=== PATIENT | female | born 1935 | race Caucasian/White ===

== ENCOUNTER 2017-02-10 12:16 | Emergency (ER) | payer MEDICARE, MEDICAID ==
[~2017-02-10 12:16] MED LIST: LISI2.5T PO
[2017-02-10 12:19] VITALS: BP 123/85
== END 2017-02-10 13:10 | disposition home or self-care (01) ==
LOC: ED 12:36
DX: M19.021 Primary osteoarthritis, right elbow (principal); Z76.0 Encounter for issue of repeat prescription; G89.29 Other chronic pain; M25.531 Pain in right wrist; I10 Essential (primary) hypertension; F10.129 Alcohol abuse with intoxication, unspecified
CPT/HCPCS: 99283

== ENCOUNTER 2017-02-19 11:27 | Emergency (ER) | payer MEDICARE, MEDICAID ==
[~2017-02-19] VITALS: Ht 167.6 cm; Wt 75.3 kg
[2017-02-19 11:29] VITALS: BP 138/85
[2017-02-19] MEDS ORDERED: KETOROLAC 30 MG/1 ML IM ONE (13:00)
[2017-02-19] MEDS ORDERED: KETOROLAC 30 MG/1 ML ONE (13:01)
== END 2017-02-19 13:07 | disposition home or self-care (01) ==
LOC: ED 11:44
DX: G89.11 Acute pain due to trauma (principal); M25.521 Pain in right elbow; M79.631 Pain in right forearm; I10 Essential (primary) hypertension; I48.91 Unspecified atrial fibrillation; X58.XXXA Exposure to other specified factors, initial encounter; Y93.89 Activity, other specified; Y92.89 Other specified places as the place of occurrence of the external cause; Y99.9 Unspecified external cause status
CPT/HCPCS: 73080; 73090; 96372; 99284; J1885

== ENCOUNTER 2017-02-22 07:25 | Emergency (ER) | payer MEDICARE, MEDICAID ==
[~2017-02-22] VITALS: Ht 167.6 cm; Wt 75.0 kg
[2017-02-22 07:27] VITALS: BP 106/75
[2017-02-22] MEDS ORDERED: FLUORESCEIN OPHTHALMIC 1 MG STRIP ONE (07:52)
[2017-02-22] MEDS ORDERED: PROPARACAINE OPHTH 0.5%, 15ML ONE (07:52)
[2017-02-22] MEDS ORDERED: PROPARACAINE OPHTH 0.5%, 15ML EACHEYE ONE (08:00)
[2017-02-22] MEDS ORDERED: FLUORESCEIN OPHTHALMIC 1 MG STRIP EACHEYE ONE (08:00)
== END 2017-02-22 08:23 | disposition home or self-care (01) ==
LOC: ED 08:00
DX: S05.02XA Injury of conjunctiva and corneal abrasion without foreign body, left eye, initial encounter (principal); I10 Essential (primary) hypertension; X58.XXXA Exposure to other specified factors, initial encounter; Y93.89 Activity, other specified; Y92.89 Other specified places as the place of occurrence of the external cause; Y99.9 Unspecified external cause status
CPT/HCPCS: 99283

== ENCOUNTER 2017-02-27 10:29 | Emergency (ER) | payer MEDICARE, MEDICAID ==
[~2017-02-27] VITALS: Ht 167.6 cm; Wt 76.0 kg
[2017-02-27 10:34] VITALS: BP 128/80
== END 2017-02-27 11:07 | disposition home or self-care (01) ==
LOC: ED 10:59
DX: S66.911A Strain of unspecified muscle, fascia and tendon at wrist and hand level, right hand, initial encounter (principal); I10 Essential (primary) hypertension; M10.9 Gout, unspecified; X58.XXXA Exposure to other specified factors, initial encounter; Y93.89 Activity, other specified; Y92.89 Other specified places as the place of occurrence of the external cause; Y99.8 Other external cause status
CPT/HCPCS: 99283

== ENCOUNTER 2017-03-06 06:49 | Emergency (ER) | payer MEDICARE, MEDICAID ==
[~2017-03-06] VITALS: Ht 167.6 cm; Wt 79.2 kg
[2017-03-06 06:50] VITALS: BP 164/107
[2017-03-06] MEDS ORDERED: LISI2.5T PO (07:18)
[2017-03-06] MEDS ORDERED: OXYcodone/APAP 5/325MG TABLET ONE (07:59)
[2017-03-06] MEDS ORDERED: OXYcodone/APAP 5/325MG TABLET PO ONE (08:00)
== END 2017-03-06 08:40 | disposition home or self-care (01) ==
LOC: ED 07:22
DX: G89.11 Acute pain due to trauma (principal); M79.631 Pain in right forearm; I10 Essential (primary) hypertension; I48.91 Unspecified atrial fibrillation; W19.XXXA Unspecified fall, initial encounter; Y93.89 Activity, other specified; Y92.89 Other specified places as the place of occurrence of the external cause; Y99.8 Other external cause status
CPT/HCPCS: 99283

== ENCOUNTER 2017-03-17 06:49 | Emergency (ER) | payer MEDICARE, MEDICAID ==
[~2017-03-17] VITALS: Ht 167.6 cm; Wt 76.0 kg
[2017-03-17 06:50] VITALS: BP 119/84
[2017-03-17] MEDS ORDERED: HYDROcodone/APAP 5/325 TABLET PO ONE (07:30)
[2017-03-17] MEDS ORDERED: KETOROLAC 30 MG/1 ML IM ONE (07:30)
[2017-03-17] MEDS ORDERED: HYDROcodone/APAP 5/325 TABLET ONE (07:34)
[2017-03-17] MEDS ORDERED: KETOROLAC 30 MG/1 ML ONE (07:35)
== END 2017-03-17 08:03 | disposition home or self-care (01) ==
LOC: ED 07:54
DX: G89.29 Other chronic pain (principal); I10 Essential (primary) hypertension; M25.531 Pain in right wrist; I48.91 Unspecified atrial fibrillation
CPT/HCPCS: 29125; 96372; 99283; J1885

== ENCOUNTER 2017-04-15 07:25 | Emergency (ER) | payer MEDICARE, MEDICAID ==
[~2017-04-15] VITALS: Ht 167.6 cm; Wt 77.1 kg
[2017-04-15] MEDS ORDERED: HYDROcodone/APAP 5/325 TABLET PO ONE (08:00)
[2017-04-15] MEDS ORDERED: HYDROcodone/APAP 5/325 TABLET ONE (08:05)
[2017-04-15 08:12] VITALS: BP 142/93
[2017-04-15] MEDS ORDERED: METOPROLOL TARTRATE 50 MG TABLET ONE (08:43)
[2017-04-15] MEDS ORDERED: METOPROLOL TARTRATE 50 MG TABLET PO ONE (09:00)
== END 2017-04-15 08:50 | disposition home or self-care (01) ==
LOC: ED 07:48
DX: M25.531 Pain in right wrist (principal); I10 Essential (primary) hypertension
CPT/HCPCS: 99283

== ENCOUNTER 2017-05-31 23:43 | Emergency (ER) | payer MEDICAID, MEDICARE ==
[~2017-05-31] VITALS: Ht 167.6 cm; Wt 75.0 kg
[2017-06-01] MEDS ORDERED: ASPI-621 PO (00:05)
[2017-06-01] MEDS ORDERED: HYDROcodone/APAP 5/325 TABLET ONE (00:45)
[2017-06-01] MEDS ORDERED: HYDROcodone/APAP 5/325 TABLET PO ONE (01:00)
[2017-06-01 01:14] VITALS: BP 146/76
== END 2017-06-01 01:16 | disposition home or self-care (01) ==
LOC: ED 23:46
DX: G89.18 Other acute postprocedural pain (principal); M25.531 Pain in right wrist; I10 Essential (primary) hypertension; M10.9 Gout, unspecified; F10.129 Alcohol abuse with intoxication, unspecified
CPT/HCPCS: 99283

== ENCOUNTER 2017-08-26 14:10 | Inpatient (IN) | payer MEDICARE, MEDICAID ==
[~2017-08-26] VITALS: Ht 167.6 cm; Wt 85.2 kg
[~2017-08-26 14:10] MED LIST changes: +ASPI-621 PO
[2017-08-26] MEDS ORDERED: IBUPROFEN 200 MG TABLET PO ONE (15:00)
[2017-08-26] MEDS ORDERED: IBUPROFEN 200 MG TABLET ONE (15:02)
[2017-08-26] MEDS ORDERED: METO25TA35 PO (15:07)
[2017-08-26] MEDS ORDERED: GABA300C10 PO (15:07)
[2017-08-26 15:11] LABS: MICROSCOPIC INDICATED
[2017-08-26 15:13] LABS: CULTURE INDICATED? YES
[2017-08-26] MEDS ORDERED: CEFTRIAXONE PMX 1GM/50ML 50 ML IVPB ONE (15:30)
[2017-08-26] MEDS ORDERED: CEFTRIAXONE PMX 1GM/50ML 50 ML ONE (15:46)
[2017-08-26] MEDS ORDERED: ONDANSETRON ODT 4 MG PO PRN (16:30)
[2017-08-26] MEDS ORDERED: LABETALOL 5MG/ML, 20ML IVPush PRN (16:30)
[2017-08-26] MEDS ORDERED: POLYETHYLENE GLYCOL 17 GM PACKET PO PRN (16:30)
[2017-08-26] MEDS ORDERED: ONDANSETRON 2MG/ML, 2ML IVPush PRN (16:30)
[2017-08-26 16:41] LABS: INTERNATIONAL NORMALIZED RATIO 0.97 (0.93-1.1); PROTHROMBIN TIME 10.1 Seconds (9.6-11.5)
[2017-08-26] MEDS: ENOXAPARIN 40 MG/0.4 ML SQ SCH (18:01)
[2017-08-26] MEDS: morphine SULFATE 10 MG/ML, 1ML IVPush PRN ×2 (18:01→21:08)
[2017-08-26] MEDS: SODIUM CHLORIDE 0.9% 1,000 ML IV SCH (18:01)
[2017-08-26 18:37] LABS: BASOPHILS # (AUTO) 0.03 x10^3/uL (0-0.1); BASOPHILS % (AUTO) 0 % (0-1); EOSINOPHILS # (AUTO) 0.11 x10^3/uL (0-0.4); EOSINOPHILS % (AUTO) 1 % (1-7); LYMPHOCYTES # (AUTO) 1.22 x10^3/uL (1-3.4); LYMPHOCYTES % (AUTO) 15 % (22-44); MD NO; MEAN CORPUSCULAR HEMOGLOBIN 28.2 pg (27.0-34.8); MEAN CORPUSCULAR HGB CONC 32.9 g/dL (32.4-35.8); MEAN CORPUSCULAR VOLUME 85.6 fL (80-100); MONOCYTES # (AUTO) 0.36 x10^3/uL (0.2-0.8); MONOCYTES % (AUTO) 5 % (2-9); NEUTROPHILS % (AUTO) 79 % (42-75); PLATELET COUNT 248 x10^3/uL (130-400); RED BLOOD COUNT 4.94 x10^6/uL (3.82-5.3); RED CELL DISTRIBUTION WIDTH 14.4 % (9.6-15.2)
[2017-08-26 18:42] LABS: ALANINE AMINOTRANSFERASE 15 U/L (12-78); ALBUMIN 3.6 g/dL (3.4-5.0); ANION GAP 5 mmol/L (5-15); CHLORIDE 109 mmol/L (98-107); CREATININE 0.74 mg/dL (0.55-1.02)
[2017-08-26 18:45] LABS: ALKALINE PHOSPHATASE 97 U/L (45-117); BILIRUBIN,TOTAL 0.6 mg/dL (0.2-1.0); TOTAL PROTEIN 7.3 g/dL (6.4-8.2)
[2017-08-26 19:16] VITALS: BP_SYST 103; BP_SYST 146; BP_DIAS 56; BP_DIAS 93
[2017-08-26] MEDS ORDERED: OMNIPAQUE 350 MG/ML, 100ML BOTTLE ONE (19:46)
[2017-08-27 00:54] VITALS: BP 137/75
[2017-08-27] MEDS: morphine SULFATE 10 MG/ML, 1ML IVPush PRN ×3 (02:21→09:14)
[2017-08-27] MEDS: SODIUM CHLORIDE 0.9% 1,000 ML IV SCH ×3 (04:24→23:48)
[2017-08-27 06:35] VITALS: BP 127/86
[2017-08-27 08:33] LABS: BASOPHILS # (AUTO) 0.03 x10^3/uL (0-0.1); BASOPHILS % (AUTO) 0 % (0-1); EOSINOPHILS # (AUTO) 0.08 x10^3/uL (0-0.4); EOSINOPHILS % (AUTO) 1 % (1-7); LYMPHOCYTES # (AUTO) 1.15 x10^3/uL (1-3.4); LYMPHOCYTES % (AUTO) 17 % (22-44); MD NO; MEAN CORPUSCULAR HGB CONC 32.9 g/dL (32.4-35.8); MEAN CORPUSCULAR VOLUME 85.1 fL (80-100); MEAN PLATELET VOLUME 9.1 fL (7.4-10.4); MONOCYTES # (AUTO) 0.43 x10^3/uL (0.2-0.8); MONOCYTES % (AUTO) 7 % (2-9); NEUTROPHILS # (AUTO) 4.91 x10^3/uL (1.8-6.8); NEUTROPHILS % (AUTO) 74 % (42-75); PLATELET COUNT 223 x10^3/uL (130-400); RED BLOOD COUNT 4.55 x10^6/uL (3.82-5.3); RED CELL DISTRIBUTION WIDTH 14.5 % (9.6-15.2)
[2017-08-27 08:36] LABS: CHLORIDE 108 mmol/L (98-107)
[2017-08-27 08:37] LABS: ANION GAP 5 mmol/L (5-15); CALCIUM 8.4 mg/dL (8.5-10.1); CREATININE 0.72 mg/dL (0.55-1.02)
[2017-08-27] MEDS: SENNA/DOCUSATE TABLET PO SCH (09:00)
[2017-08-27] MEDS: METOPROLOL TARTRATE 25 MG TABLET PO SCH (09:00)
[2017-08-27] MEDS: GABAPENTIN 100 MG CAPSULE PO SCH (10:17)
[2017-08-27] MEDS: ASPIRIN 81 MG TABLET EC PO SCH (10:17)
[2017-08-27] MEDS: LISINOPRIL 5 MG TABLET PO SCH (10:18)
[2017-08-27 13:19] VITALS: BP 126/83
[2017-08-27] MEDS: CEFTRIAXONE PMX 1GM/50ML 50 ML IV SCH (14:49)
[2017-08-27] MEDS: ENOXAPARIN 40 MG/0.4 ML SQ SCH (16:30)
[2017-08-27 19:10] VITALS: BP 119/78
[2017-08-28 01:32] VITALS: BP 97/67
[2017-08-28 05:16] LABS: BASOPHILS # (AUTO) 0.03 x10^3/uL (0-0.1); BASOPHILS % (AUTO) 1 % (0-1); EOSINOPHILS # (AUTO) 0.07 x10^3/uL (0-0.4); EOSINOPHILS % (AUTO) 1 % (1-7); LYMPHOCYTES # (AUTO) 1.19 x10^3/uL (1-3.4); LYMPHOCYTES % (AUTO) 21 % (22-44); MD NO; MEAN CORPUSCULAR HEMOGLOBIN 28.5 pg (27.0-34.8); MEAN CORPUSCULAR HGB CONC 33.3 g/dL (32.4-35.8); MEAN CORPUSCULAR VOLUME 85.5 fL (80-100); MEAN PLATELET VOLUME 9.3 fL (7.4-10.4); MONOCYTES # (AUTO) 0.43 x10^3/uL (0.2-0.8); MONOCYTES % (AUTO) 8 % (2-9); NEUTROPHILS # (AUTO) 4.05 x10^3/uL (1.8-6.8); NEUTROPHILS % (AUTO) 70 % (42-75); PLATELET COUNT 212 x10^3/uL (130-400); RED BLOOD COUNT 4.23 x10^6/uL (3.82-5.3); RED CELL DISTRIBUTION WIDTH 14.2 % (9.6-15.2)
[2017-08-28 05:28] LABS: ALBUMIN 2.9 g/dL (3.4-5.0); ANION GAP 6 mmol/L (5-15); CALCIUM 8.2 mg/dL (8.5-10.1); CHLORIDE 112 mmol/L (98-107)
[2017-08-28 05:29] LABS: CREATININE 0.53 mg/dL (0.55-1.02)
[2017-08-28 07:28] VITALS: BP 143/91
[2017-08-28] MEDS: SENNA/DOCUSATE TABLET PO SCH (09:00)
[2017-08-28] MEDS: SODIUM CHLORIDE 0.9% 1,000 ML IV SCH ×2 (09:28→20:43)
[2017-08-28] MEDS: ASPIRIN 81 MG TABLET EC PO SCH (09:29)
[2017-08-28] MEDS: GABAPENTIN 100 MG CAPSULE PO SCH (09:29)
[2017-08-28] MEDS: LISINOPRIL 5 MG TABLET PO SCH (09:29)
[2017-08-28] MEDS: METOPROLOL TARTRATE 25 MG TABLET PO SCH (09:29)
[2017-08-28 13:10] VITALS: BP 107/74
[2017-08-28] MEDS: CEFTRIAXONE PMX 1GM/50ML 50 ML IV SCH (15:30)
[2017-08-28] MEDS: ENOXAPARIN 40 MG/0.4 ML SQ SCH (16:30)
[2017-08-28 18:48] VITALS: BP 120/75
[2017-08-29 01:10] VITALS: BP 116/72
[2017-08-29 05:27] LABS: BASOPHILS # (AUTO) 0.02 x10^3/uL (0-0.1); BASOPHILS % (AUTO) 0 % (0-1); EOSINOPHILS # (AUTO) 0.13 x10^3/uL (0-0.4); EOSINOPHILS % (AUTO) 2 % (1-7); LYMPHOCYTES # (AUTO) 1.31 x10^3/uL (1-3.4); LYMPHOCYTES % (AUTO) 23 % (22-44); MD NO; MEAN CORPUSCULAR HEMOGLOBIN 28.1 pg (27.0-34.8); MEAN CORPUSCULAR VOLUME 85.1 fL (80-100); MEAN PLATELET VOLUME 9.1 fL (7.4-10.4); MONOCYTES # (AUTO) 0.52 x10^3/uL (0.2-0.8); MONOCYTES % (AUTO) 9 % (2-9); NEUTROPHILS # (AUTO) 3.83 x10^3/uL (1.8-6.8); NEUTROPHILS % (AUTO) 66 % (42-75); PLATELET COUNT 196 x10^3/uL (130-400); RED BLOOD COUNT 4.18 x10^6/uL (3.82-5.3); RED CELL DISTRIBUTION WIDTH 14.7 % (9.6-15.2)
[2017-08-29 05:34] LABS: CHLORIDE 113 mmol/L (98-107)
[2017-08-29 05:50] LABS: ANION GAP 8 mmol/L (5-15); CALCIUM 8.3 mg/dL (8.5-10.1); CREATININE 0.52 mg/dL (0.55-1.02)
[2017-08-29 05:51] LABS: ALBUMIN 2.8 g/dL (3.4-5.0)
[2017-08-29] MEDS: SODIUM CHLORIDE 0.9% 1,000 ML IV SCH ×2 (06:28→17:39)
[2017-08-29 07:22] VITALS: BP 149/74
[2017-08-29] MEDS ORDERED: MAGNESIUM SULFATE PMX 2GM/50ML 50 ML IV ONE (07:30)
[2017-08-29] MEDS: SENNA/DOCUSATE TABLET PO SCH (09:00)
[2017-08-29] MEDS: GABAPENTIN 100 MG CAPSULE PO SCH (10:32)
[2017-08-29] MEDS: ASPIRIN 81 MG TABLET EC PO SCH (10:32)
[2017-08-29] MEDS: METOPROLOL TARTRATE 25 MG TABLET PO SCH (10:33)
[2017-08-29] MEDS: LISINOPRIL 5 MG TABLET PO SCH (10:33)
[2017-08-29 13:46] VITALS: BP 121/78
[2017-08-29] MEDS: ENOXAPARIN 40 MG/0.4 ML SQ SCH (14:48)
[2017-08-29] MEDS: CEFTRIAXONE PMX 1GM/50ML 50 ML IV SCH (16:02)
[2017-08-29 19:16] VITALS: BP 147/92
[2017-08-30 01:18] VITALS: BP 136/88
[2017-08-30] MEDS: SODIUM CHLORIDE 0.9% 1,000 ML IV SCH (04:33)
[2017-08-30 06:14] LABS: BASOPHILS # (AUTO) 0.03 x10^3/uL (0-0.1); BASOPHILS % (AUTO) 1 % (0-1); EOSINOPHILS # (AUTO) 0.13 x10^3/uL (0-0.4); EOSINOPHILS % (AUTO) 2 % (1-7); LYMPHOCYTES # (AUTO) 1.46 x10^3/uL (1-3.4); LYMPHOCYTES % (AUTO) 24 % (22-44); MD NO; MEAN CORPUSCULAR HEMOGLOBIN 28.2 pg (27.0-34.8); MEAN CORPUSCULAR HGB CONC 33.2 g/dL (32.4-35.8); MEAN CORPUSCULAR VOLUME 84.8 fL (80-100); MEAN PLATELET VOLUME 9.6 fL (7.4-10.4); MONOCYTES # (AUTO) 0.51 x10^3/uL (0.2-0.8); MONOCYTES % (AUTO) 8 % (2-9); NEUTROPHILS # (AUTO) 3.93 x10^3/uL (1.8-6.8); NEUTROPHILS % (AUTO) 65 % (42-75); PLATELET COUNT 216 x10^3/uL (130-400); RED CELL DISTRIBUTION WIDTH 14.4 % (9.6-15.2)
[2017-08-30 06:27] LABS: CALCIUM 8.3 mg/dL (8.5-10.1); CHLORIDE 111 mmol/L (98-107)
[2017-08-30 06:33] LABS: ALANINE AMINOTRANSFERASE 13 U/L (12-78); ALKALINE PHOSPHATASE 77 U/L (45-117); ANION GAP 6 mmol/L (5-15); BILIRUBIN,TOTAL 0.6 mg/dL (0.2-1.0); TOTAL PROTEIN 6.3 g/dL (6.4-8.2)
[2017-08-30] MEDS ORDERED: CEFD300C37 PO (07:14)
[2017-08-30] MEDS ORDERED: CEFTRIAXONE PMX 1GM/50ML 50 ML IV SCH (07:30)
[2017-08-30] MEDS ORDERED: MAGNESIUM SULFATE PMX 2GM/50ML 50 ML IV ONE (07:30)
[2017-08-30 08:08] VITALS: BP 169/104
[2017-08-30] MEDS: SENNA/DOCUSATE TABLET PO SCH (09:00)
[2017-08-30] MEDS: LISINOPRIL 5 MG TABLET PO SCH (09:00)
[2017-08-30] MEDS: METOPROLOL TARTRATE 25 MG TABLET PO SCH (09:00)
[2017-08-30] MEDS: GABAPENTIN 100 MG CAPSULE PO SCH (09:00)
[2017-08-30] MEDS: ASPIRIN 81 MG TABLET EC PO SCH (09:00)
== END 2017-08-30 11:10 | disposition home or self-care (01) | DRG 689 ==
LOC: ED 14:40 → EDIP 15:40 → 3NE 16:49 → DCLOUNGE 08-30 11:04
PROVIDERS: ADMIT Hospitalist; ATTEND Hospitalist
DX: N10 Acute pyelonephritis (principal); E43 Unspecified severe protein-calorie malnutrition; I48.91 Unspecified atrial fibrillation; G62.9 Polyneuropathy, unspecified; I10 Essential (primary) hypertension; R73.9 Hyperglycemia, unspecified; Z66 Do not resuscitate; K57.30 Diverticulosis of large intestine without perforation or abscess without bleeding; Z68.30 Body mass index [BMI] 30.0-30.9, adult
CPT/HCPCS: 36415; 71045; 74177; 80048; 80053; 81001; 82040; 83605; 83735; 84100; 85025; 85610; 87040; 87077; 87086; 87186; 93306; 96365; J0696; J1650; J2405; Q9967; J2270; J3475; J7030

== ENCOUNTER 2018-02-16 09:40 | Emergency (ER) | payer MEDICARE, MEDICAID ==
[~2018-02-16] VITALS: Ht 165.1 cm; Wt 73.0 kg
[~2018-02-16 09:40] MED LIST changes: +CEFD300C37 PO; +GABA300C10 PO; +METO25TA35 PO
[2018-02-16 12:07] VITALS: BP 135/102
== END 2018-02-16 12:20 | disposition home or self-care (01) ==
LOC: ED 11:30
DX: S52.571A Other intraarticular fracture of lower end of right radius, initial encounter for closed fracture (principal); I10 Essential (primary) hypertension; I48.91 Unspecified atrial fibrillation; W06.XXXA Fall from bed, initial encounter; Y93.9 Activity, unspecified; Y92.003 Bedroom of unspecified non-institutional (private) residence as the place of occurrence of the external cause; Y99.9 Unspecified external cause status
CPT/HCPCS: 29125; 99284